=== PATIENT | female | born 1960 | race Caucasian/White ===

== ENCOUNTER → 2023-12-17 14:49 | Outpatient (REF) | payer OTHER, SELFPAY | LOC: RAD 14:49 | PROVIDERS: ATTENDING PHYSICIAN Nuclear Medicine Nuclear Cardiology; FAMILY PHYSICIAN Family Medicine | DX: I82.409 Acute embolism and thrombosis of unspecified deep veins of unspecified lower extremity (principal) | CPT/HCPCS: 93971 ==

== ENCOUNTER 2024-11-05 06:54 | Day surgery (SDC) | payer OTHER, SELFPAY | END 2024-11-05 10:51 | disposition home or self-care (01) | LOC: CATH 06:54 | PROVIDERS: ATTENDING PHYSICIAN Nuclear Medicine Nuclear Cardiology; FAMILY PHYSICIAN Family Medicine | DX: I48.0 Paroxysmal atrial fibrillation (principal); I08.1 Rheumatic disorders of both mitral and tricuspid valves; Q21.12 Patent foramen ovale; E78.2 Mixed hyperlipidemia; Z82.49 Family history of ischemic heart disease and other diseases of the circulatory system; Z95.810 Presence of automatic (implantable) cardiac defibrillator; Z79.01 Long term (current) use of anticoagulants | CPT/HCPCS: 93312; 93320; 93325 ==

== ENCOUNTER 2024-12-01 22:49 | Inpatient (IN) | payer OTHER, SELFPAY ==
[2024-12-01] VITALS (13 sets, daily range): BP systolic 84–114; BP diastolic 64–85; BMI 28.4
[2024-12-01 19:28] LABS: Hematocrit 36.1 % (37.0-47.0); Hemoglobin 12.0 g/dL (12.0-16.0); Mean Corp Hgb Conc. 33.2 g/dL (33.0-37.0); Mean Corpuscular Volume 95.3 fL (81.0-99.0); Nucleated Red Blood Cells % 0 %; Platelet Count 326 10^3/uL (130-400); Red Cell Dist. Width 12.1 % (11.5-14.5)
[2024-12-01 19:40] LABS: INR 1.46; PT 18.0 Sec (11.4-14.6)
[2024-12-01 19:41] LABS: APTT 29.3 Sec (23.4-35.0)
[2024-12-01 19:59] LABS: ALT (SGPT) 110 U/L (0-35); AST (SGOT) 72 U/L (14-36); Albumin 3.8 g/dl (3.5-5.0); Alkaline Phosphatase 58 U/L (38-126); Blood Urea Nitrogen 21 mg/dl (7-17); Calcium 9.3 mg/dl (8.4-10.2); Carbon Dioxide 23 mmol/L (22-30); Chloride 107 mmol/L (98-107); Estimated Creatinine Clearance 71 ml/min; Glucose 127 mg/dl (70-99); Potassium 5.1 mmol/L (3.5-5.1); Sodium 136 mmol/L (135-145); Total Protein 7.8 g/dl (6.3-8.2); eGFR > 60.00
[2024-12-01 20:09] LABS: Troponin I < 0.012 ng/ml
--- NOTE | 2024-12-01 20:55 | ED.GENMED ---
History of Present Illness
General
Chief Complaint: Cardiac Symptoms
Source: patient, records and spouse
Exam Limitations: none
Time Seen by Provider: 12/01/24 20:39
Nursing documentation reviewed up to this point in time: agreed with
History of Present Illness
History of Present Illness:
64-year-old female with a past medical history of cardiomyopathy status post AICD, paroxysmal atrial fibrillation who presents to the emergency department for evaluation of shortness of breath and tachycardia. Patient reports symptoms have been
worsening over the past few weeks. She says that for the past week she has noticed that she cannot even walk from her car to her office without stopping due to shortness of breath. She says she has noticed increased swelling around the ankles.
She has not noted any weight gain. She says she has significant orthopnea and trouble sleeping at night because of it. She says she has had wheezing at nighttime. She says that she received a call from her ict trainer because her AICD has been
alarming due to A-fib with RVR and she was ultimately referred to the ER with her symptoms concerning for CHF. She has been in A-fib it sounds like since early reports initially she was asymptomatic but it was noted on her pacemaker report
and so she was brought in by cardiology with initial plan for YANIQUE cardioversion; unfortunately clot noted on YANIQUE and so procedure was halted in favor of plan for anticoagulation.
Past History
Past History
ED Past Medical History: Other (cardiomyopathy)
ED Past Surgical History: Cardiac
Social History
Alcohol: Occasional
Personal:
Living: with family
Review of Systems
Review of Systems
All Other Systems: ROS reviewed and negative except as documented in HPI and ROS
Constitutional: Reports fatigue; Denies fever
Respiratory: Reports trouble breathing; Denies cough
Cardiac: Reports palpitations; Denies chest pain
ABD/GI: Denies abdominal pain or nausea
: Denies flank pain
Musculoskeletal: Reports edema; Denies neck pain or back pain
Neurological: Denies dizzy or headache
Phy Exam
Physical Exam
Physical Exam:
General: Awake, alert, oriented x3; no acute distress
Head: Normocephalic, atraumatic
Eyes: Conjunctiva normal
Throat: Airway intact, handling secretions
Neck: Trachea midline, no JVD noted
Lungs: Patient has rales at the lung bases bilaterally but no tachypnea or hypoxia
Heart: Tachycardia with irregularly irregular rhythm, no murmurs, gallops, or rubs
Abd: Soft, non distended, nontender
Neuro: No gross deficits
Extremities: Trace edema in the lower legs bilaterally equal pulses in all extremities
Scores
Heart Failure Risk
Heart Failure Risk Score: Yes
History of Stroke or TIA: No
History of intubation for respiratory distress: No
Heart rate on ED arrival >/= 110: Yes
SaO2 <90% on arrival on room air: No
HR >/=110 during 3min walk test (or too ill to perform test): Yes
ECG has acute ischemic changes: No
Urea >/=12mmol/L (BUN 33.6mg/dL): No
Serum CO2>/=35mmol/L: No
Troponin I or T elevated to MO Level (0.4mg/dL): No
NT-proBNP >/=5,000ng/L (5,000pg/ml): No
HF Risk Score: 2
Admission Status: MEDIUM RISK 9.2% Consider observation or discharge to home with homecare & f/u visit to PCP/Director Of Engineering, or SNF for treatment
Heart Score for Chest Pain Patients
STEMI patient?: Not applicable
Withdrawal Assessment of Alcohol
Withdrawal Assessment Completed?: Not applicable
Course
Orders/Labs/Results
Orders:
Orders
12/01/24 18:55
Complete Blood Count/With Diff Urgent
Comprehensive Metabolic Panel Urgent
NT-proBNP Urgent
Comment: ADD ON
PT/INR [Prothrombin Time] Urgent
Is patient on Coumadin/Warfarin?: No
Comment: [email or web address]
PTT Urgent
Troponin I Urgent
12/01/24 19:39
Interrogate Pacemaker- Treatment ONCE
12/01/24 20:52
Add On- LAB Urgent
Tests Added?: pro-BNP
12/01/24 20:53
CR Chest - 2 Views Urgent
Comment:
Reason For Exam: sob
12/01/24 20:55
CARDIOLOGY CONSULT Urgent
Consulting Provider: Jose G Sprague
Was physician already notified: Yes
Diltiazem HCl [Cardizem] 10 mg IV NOW STA
Furosemide [Lasix] 40 mg IV NOW STA
Abnormal Lab Results
12/01/24
18:55
RBC 3.79 L 10^6/uL
(4.20-5.40)
Hct 36.1 L %
(37.0-47.0)
MCH 31.7 H pg
(27.0-31.0)
PT 18.0 H Sec
(11.4-14.6)
BUN 21 H mg/dl
(7-17)
Glucose 127 H mg/dl
(70-99)
AST 72 H U/L
(14-36)
ALT 110 H U/L
(0-35)
12/01/24 18:55
12/01/24 18:55
Vital Signs
Initial and Last Documented VS:
Initial Vital Signs
Temp Pulse Resp BP Pulse Ox
36.4 C 129 16 114/84 97
12/01/24 18:48 12/01/24 18:48 12/01/24 18:48 12/01/24 18:48 12/01/24 18:48
Last Documented Vital Signs
Temp Pulse Resp BP Pulse Ox
36.4 C 126 20 108/81 95
12/01/24 18:48 12/01/24 21:05 12/01/24 20:15 12/01/24 21:05 12/01/24 21:00
MDM/Problems Addressed
Differential Diagnosis Includes:
CHF, symptomatic A-fib, anemia
MDM/Problems Addressed:
64-year-old female presents to the ER for evaluation of increasing shortness of breath and leg swelling, orthopnea in the setting of recent issues with A-fib as described above. She had clot noted on YANIQUE a few weeks ago and for this reason could
not be cardioverted but was started on Eliquis and has been compliant. Would not be a good cardioversion candidate electively in the ER. She does appear to be in mild CHF today. Her vital signs today were significant for tachycardia but no
hypoxia or tachypnea and normal blood pressure. She had lab work sent off including a CBC and a CMP which showed mild transaminitis likely in the setting of CHF. proBNP is pending. Troponin undetectable. Will check chest x-ray. Reviewed EKG
which shows A-fib with RVR, device interrogation report shows persistently high rates for about a month. Discussed with ict trainer will plan for rate control and diuresis, admission to hospitalist service pending rest of workup.
Chest x-ray reviewed by me shows mild pulmonary vascular congestion overall clinical picture concerning for CHF likely triggered by A-fib with RVR. Heart rate improved to low 100s after IV diltiazem. Will admit for continued monitoring and
treatment. Discussed with hospitalist for admission.
Chronic conditions affecting care:
A-fib, cardiomyopathy
*Radiology
Radiology exam reviewed: preliminary read by ED provider
*Pulse Oximetry
SaO2: 95
Oxygen Mode of Delivery: Room air
Patient hypoxic: no (95%)
*EKG
Interpreted by ED Provider?: Yes
Heart Rate: 134
Rate: tachycardiac
Rhythm: a-fib
[place]: right axis deviation
Interval: normal interval
QRS Pattern: normal QRS
Ischemia: no ischemia
*Critical Care Note
Total Time (30-74mins, 75-104mins- exclusive of procedures): Not Applicable
Data Reviewed
Review of Other/Old Records Reveals: Labs and Records
Source: patient, records and spouse
Patient Management
Discussion with other providers: Hospitalist (Discussed with hospitalist) and Picture Copyist (Discussed with cardiology)
Escalation/DeEscalation of care consider admission/obs:
Admission indicated
ED Attending Note
-
Portions of this chart may have been created with voice recognition software.� Occasional wrong word or��sound alike� substitutions may have occurred due to the inherent limitations of voice recognition software.
Discharge Plan
Departure
Patient Disposition: Admit
Date of Disposition: 12/01/24
Time of Disposition: 21:45
Admit to doctor: Courtney
Presentation/result/management discussed w/ accepting MD/DO: Hospitalist
Discharge Problem:
CHF (congestive heart failure), Atrial fibrillation with RVR
Prescriptions:
No Action
carvedilol 6.25 MG tablet
12.5 mg PO BID
ergocalciferol (vitamin D2) 1,250 mcg (50,000 unit) Capsule
1,250 mcg PO QWEEK
loratadine [Claritin] 10 mg Tablet
10 mg PO DAILY PRN (Reason: allergies)
Eliquis 5 mg Tablet
5 mg PO BID
Referrals:
Trena Morales MD [Family Provider]
Interventions
Interventions:
*Risk Screen - Suicide Last Done: 12/01/24 18:52
*General Assessment Last Done: 12/01/24 19:45
*Neglect/Abuse Screening Last Done: 12/01/24 18:52
*ED- Fall Risk Assessment Last Done: 12/01/24 19:45
*ED COVID-19 Vaccine History Last Done: 12/01/24 19:45
ED- Cardiac Assessment Last Done: 12/01/24 19:45
ED- Pulmonary Assessment Last Done: 12/01/24 19:45
Discharge Date and Time
Print Language: BENGALI
[2024-12-01] MEDS: CARDIZEM 10 MG IV (21:05)
--- NOTE | 2024-12-01 22:21 | HPS.HSE ---
Family Physician
-
Family Physician: Trena Morales
Chief Complaint
-
Shortness of breath
History of Present Illness
This is a 61-year-old female with past medical history significant for nonischemic cardiomyopathy status post pacemaker AICD, recent diagnosis of atrial fibrillation presenting to the emergency department with wheezing and shortness of breath as
well as orthopnea.
She has been a longstanding patient of cardiology. Found to have atrial fibrillation on evaluation of AICD. She was started on Eliquis over a month ago. 1 week after that she had a YANIQUE which showed a clot and they held off cardioversion at that
time. According to notes she was started on Eliquis on 710 but patient stated that she had been started before that. She has been having increasing tachycardia and shortness of breath. AICD report shows frequent episodes of rapid rates for weeks
now. She has self noticed intermittent ankle edema. She reports orthopnea. Overnight she states she was wheezing morning usual and she called her physician who asked her to come to the emergency department. She denies having any chest pain. She
denies feeling dizzy or lightheaded.
In the emergency department she was initially tachycardic to the 130s. Blood pressure was in the 90s over 60s with a oxygen saturation of 94% on room air. She was afebrile. ECG shows atrial fibrillation at rate of 134. Chest x-ray shows
cardiomegaly with mild interstitial pulmonary edema and trace pleural effusions. BNP was elevated at 3417. Troponin was 0.012. CBC was unremarkable, electrolytes were all within normal limits with the BUN and creatinine were normal.
Medical History
Past Medical History
Past Medical History: Reports Arrhythmia (Atrial fibrillation) and CHF (Nonischemic cardiomyopathy status post pacemaker AICD)
Additional Past Medical History:
Nonischemic cardiomyopathy
Proximal atrial fibrillation
Past Surgical History: Reports Appendectomy and Gynocological (Hysterectomy with bilateral salpingo-oophorectomy)
Social History
Tobacco: Non-smoker
Alcohol: Occasional
Drug: None
Personal:
Living: With Family
Employment: Employed
Family History
Family History: Not pertinent
Allergies / Home Medications
Allergies reflects when Allergies were last updated in pushd.
Home Medications with original date entered in pushd
Allergy/Medication List:
Allergies
Allergy/AdvReac Type Severity Reaction Status Date / Time
Penicillins Allergy Hives Verified 12/29/11 13:28
Home Medications
carvedilol 6.25 mg tablet 12.5 mg PO BID 03/10/09
apixaban 5 mg tablet (Eliquis) 5 mg PO BID 11/05/24
ergocalciferol (vitamin D2) 1,250 mcg (50,000 unit) capsule 1,250 mcg PO QWEEK 11/05/24
loratadine 10 mg tablet (Claritin) 10 mg PO DAILY PRN allergies 11/05/24
Review of Systems
-
History Source: Patient
Constitutional: Reports No Symptoms
EENT: Reports No Symptoms
Respiratory: Reports Trouble Breathing
Cardiac: Reports No Symptoms
Abdomen/GI: Reports No Symptoms
: Reports No Symptoms
Musculoskeletal: Reports No Symptoms
Skin: Reports No Symptoms
Neurological: Reports No Symptoms
Endocrine: Reports No Symptoms
Hematologic/Lymphatic: Reports No Symptoms
Psych: Reports No Symptoms
Physical Exam
Vital Signs
Vital Signs
Temp Pulse Resp BP Pulse Ox
97.6 F 89 18 94/68 94
12/01/24 18:48 12/01/24 22:00 12/01/24 22:00 12/01/24 22:00 12/01/24 22:00
Physical Exam
General: Well Developed, Well Nourished and No Apparent Distress
HEENT: NormoCephalic, Moist mucous membranes and Atraumatic
Respiratory: Clear
Cardiac: S1/S2, Irregular Rhythm and Tachycardia; No Murmur or Rub
GI: Soft, Non Tender, Non Distended and Normal Bowel Sounds; No Organomegaly
Rectal: Deferred by Provider
Musculoskeletal: No Clubbing, No Cyanosis and No Edema
Skin: No Rash
Neuro: AO x 3 and Nonfocal/grossly intact
Psych: Calm
Laboratory Results
-
12/01/24 18:55
12/01/24 18:55
Laboratory Results
PT 18.0 Sec (11.4-14.6) H 12/01/24 18:55
INR 1.46 12/01/24 18:55
APTT 29.3 Sec (23.4-35.0) 12/01/24 18:
Total Bilirubin 0.7 mg/dl (0.2-1.3) 12/01/24 18:55
AST 72 U/L (14-36) H 12/01/24 18:55
ALT 110 U/L (0-35) H 12/01/24 18:55
Alkaline Phosphatase 58 U/L (38-126) 12/01/24 18:55
Troponin I < 0.012 ng/ml 12/01/24 18:55
Data Reviewed
-
Diagnostic Radiology: Image Personally Visualized and interpreted and Report Reviewed by me
Medical Tests (Nuc Med, Echo, EKG etc): Image Personally Visualized and interpreted
Lab Data: Labs Reviewed by me
Old Records: Reviewed
Impression/Plan
-
IMPRESSION:
64 year-old female with recent diagnosis of atrial fibrillation coming in with rapid atrial fibrillation and likely rate related worsening cardiomyopathy with echocardiogram (YANIQUE showing EF of 50% and bilateral atrial enlargement. BNP is over 3000.
Troponin is negative. She has mild interstitial edema. Overall she does not seem markedly volume overloaded currently rates are in the low 100s and high 90s.
PLAN:
A-fib with RVR and CHF exacerbation
-Admit to IVU
-N.p.o. after midnight
-Echo in a.m.
-Patient rate controlled with 10 mg of IV diltiazem, gentle with Dilt given EF of 15% but can start Dilt for rate control
-Continue Coreg 25 twice daily with hold parameters for blood pressure
-Lasix 40 mg IV daily for now
-Daily weights and ins and outs
- If rate remains uncontrolled we will need cardioversion in the morning otherwise may go for ablation
-Continue Eliquis
Transaminitis - likely 2/2 hepatic congestion
- trend with fluid removal on lasix
DVT prophylaxis�on Eliquis
CODE STATUS�full code
[2024-12-02] VITALS (9 sets, daily range): BP systolic 89–110; BP diastolic 58–77; BMI 28.2
--- NOTE | 2024-12-02 02:02 | PTCARENOTE ---
Pt. rec'd into room 2256 from ED AAOx3, VSS, A-fib on the monitor, rate low 100's-120's with ambulation. No complaints of chest pain discomfort, does complain of some MELGAR with ambulation and unable to lie flat while in bed - pulse ox on RA 94-95%,
lungs clear. No other complaints. Pt. oriented to room and plan of care, understanding verbalized. Currently resting quietly.
[2024-12-02 05:02] LABS: Hematocrit 34.2 % (37.0-47.0); Hemoglobin 11.4 g/dL (12.0-16.0); Mean Corp Hgb Conc. 33.3 g/dL (33.0-37.0); Mean Corpuscular Volume 94.5 fL (81.0-99.0); Platelet Count 287 10^3/uL (130-400); Red Cell Dist. Width 12.1 % (11.5-14.5)
[2024-12-02 05:28] LABS: ALT (SGPT) 96 U/L (0-35); AST (SGOT) 52 U/L (14-36); Albumin 3.6 g/dl (3.5-5.0); Alkaline Phosphatase 55 U/L (38-126); Blood Urea Nitrogen 13 mg/dl (7-17); Calcium 8.8 mg/dl (8.4-10.2); Carbon Dioxide 21 mmol/L (22-30); Chloride 110 mmol/L (98-107); Estimated Creatinine Clearance 90 ml/min; Glucose 102 mg/dl (70-99); Magnesium 1.9 mg/dl (1.6-2.3); Potassium 4.3 mmol/L (3.5-5.1); Sodium 139 mmol/L (135-145); Total Protein 7.1 g/dl (6.3-8.2); eGFR > 60.00
--- NOTE | 2024-12-02 07:31 | CON.CAR ---
Addendum entered and electronically signed by Tavo Muse DO 12/02/24 16:04:
I saw and examined the patient.
The Nutrition Partner's note was reviewed and I agree with the note.
Comment:
She presents with progressive dyspnea and orthopnea and signs of acute systolic heart failure.
Recent left atrial appendage thrombus precluded cardioversion in the setting of recurrent worsened cardiomyopathy likely secondary to atrial fibrillation.
Cont IV diuresis
LFT elevation likely secondary to hepatic congestion, slowly improving.
Consider YANIQUE to reeval for resolution of thrombus inpt vs outpt pending clinical course.
Cont Coreg 25 mg BID
Cont Eliquis.
May need to consider additional agent for rate control pending HR control.
Hypotension has precluded GDMT for CM.
She is considering a second opinion at [facility] through her prior coworker.
She remains appreciative of care.
Original Note:
Consultation
Consultation Request
Date/Time Consultation Requested: 12/01/2024 at 2055
Date/Time Consultation Performed: 12/02/2024 and 0742
Requesting Provider: Dr. Cortes
Performing Provider: Dr. Muse
Reason for Consultation: Afib with RVR, acute HFrEF
Medical History
-
History of Present Illness:
Patient came to the ER yesterday with increasing SOB and was admitted with rapid A-fib and acute HF with cardiology being consulted. Patient has a history of NICM, EF was 30 to 35% in 2008 and cardiac cath at that time showed normal coronary
arteries. EF improved to 40 to 45% with GDMT and was stable until another slight drop in EF down to 30% by echo 07/17/2022 prompting another cardiac cath on 06/08/2021 that also showed normal coronary arteries. Patient's EF improved again and was up
to 40 to 45% by echo 04/16/2024. Cardiology office was alerted to new A-fib by the patient's [employer] ICD on 10/23/2024 and patient was started on Eliquis. Patient was seen in the office and was agreeable to YANIQUE/CV which was attempted on
11/05/2024, but patient found to have MARU clot and CV was canceled. Patient has been remained on her usual dose of Eliquis 5 mg BID, but her dose of Coreg has been increased for increasing symptoms of A-fib. Patient had been asymptomatic with A-fib
when it was initially noticed on device check, but symptoms have been increasing, increasingly SOB and MELGAR. Patient was not chronically on loop diuretic and when she called the office with symptoms of orthopnea yesterday she was referred to the ER.
PMH:
Paroxysmal Afib
noticed on device check 10/23/24
Chronic Eliquis OAC since 10/26/24
MARU clot on YANIQUE 11/05/24
NICM EF 15% by YANIQUE 11/05/2024
h/o improved CM EF 30 to 35% by echo 2008 then improved to 40 to 45% with GDMT on echo 04/02/2012
Normal coronary arteries by cardiac catheterizations 08/24/2008 and 06/08/2021
Past Medical History
Past Medical History: Other (in HPI)
Past Surgical History: Appendectomy, Cardiac ([employer] DC ICD), Gynecological (partial hysterectomy) and Tonsilectomy
Social History
Tobacco: Non-Smoker
Alcohol: None
Drug: None
Personal:
Living: With Family
Employment: Employed (she works for [employer])
Family History
Family History: CAD (father had CABG and mother had CHF)
Allergies / Home Medications
Allergy/AdvReac Type Severity Reaction Status Date / Time
Penicillins Allergy Hives Verified 12/29/11 13:28
�Medication �Instructions �Recorded �Confirmed �Type
carvedilol 6.25 mg tablet 12.5 mg PO BID 03/10/09 12/01/24 History
apixaban 5 mg tablet (Eliquis) 5 mg PO BID 11/05/24 12/02/24 History
ergocalciferol (vitamin D2) 1,250 1,250 mcg PO QWEEK 11/05/24 12/01/24 History
mcg (50,000 unit) capsule
loratadine 10 mg tablet (Claritin) 10 mg PO DAILY PRN allergies 11/05/24 12/01/24 History
Review of Systems
-
History Source: Patient
All other systems: Negative unless noted
Physical Exam
Vital Signs
Temp Pulse Resp BP Pulse Ox
97.7 F 93 16 110/68 95
12/02/24 04:23 12/02/24 04:22 12/02/24 04:23 12/02/24 04:22 12/02/24 04:23
GEN: NAD. AAOx3
HEENT: EOMI, MMM
LUNGS: RA. CTA B/L, no wheeze
CV: Afib on tele. Irreg irreg, S1/S2, no murmur
ABD: soft, BS+, NT, ND
EXT: No clubbing, cyanosis, lesions or edema B/L
NEURO: Gross non-focal
SKIN: Warm, dry and pink. No rash
Lab Results
12/02/24 04:30
12/02/24 04:30
Troponin I < 0.012 ng/ml 12/01/24 18:55
Spe-D-Bicfktbpouk Pept 3470 pg/ml 12/01/24 18:55
Impression / Plan
-
PCP: Dr. Trena Morales
Card: Dr. Muse
Impression:
Admitted with acute HF and rapid Afib 12/01/24
Afib with RVR
Paroxysmal Afib
noticed on device check 10/23/24
Chronic Eliquis OAC since 10/26/24
MARU clot on YANIQUE 11/05/24
Acute HFrEF
NICM EF 15% by YANIQUE 11/05/2024
h/o improved CM EF 30 to 35% by echo 2008 then improved to 40 to 45% with GDMT on echo 04/02/2012
Normal coronary arteries by cardiac catheterizations 08/24/2008 and 06/08/2021
Echo 07/2008: EF 30 to 35%
Echo 04/02/2012: EF 40 to 45%, trace MR
Echo 01/13/2018: EF 40 to 45%, anterior septum and apex are hypokinetic, no significant valve disease
Echo 04/11/2021: EF 30%, global hypokinesis
Echo 07/17/2022: EF 30% with global hypokinesis
Echo 04/16/2024: EF 40 to 45%, normal RV size and function, no significant valve disease
YANIQUE 11/05/2024: EF 15% with global hypokinesis, large volume thrombus formation and heavy spontaneous echo contrast in the MARU, mild MR, evidence of PFO with [id number] shunt by color Doppler
Plan:
-Patient came to the ER yesterday with increasing SOB and was admitted with rapid A-fib and acute HF with cardiology being consulted. Patient has a history of NICM, EF was 30 to 35% in 2008 and cardiac cath at that time showed normal coronary
arteries. EF improved to 40 to 45% with GDMT and was stable until another slight drop in EF down to 30% by echo 07/17/2022 prompting another cardiac cath on 06/08/2021 that also showed normal coronary arteries. Patient's EF improved again and was up
to 40 to 45% by echo 04/16/2024. Cardiology office was alerted to new A-fib by the patient's [employer] ICD on 10/23/2024 and patient was started on Eliquis. Patient was seen in the office and was agreeable to YANIQUE/CV which was attempted on
11/05/2024, but patient found to have MARU clot and CV was canceled. Patient has been remained on her usual dose of Eliquis 5 mg BID, but her dose of Coreg has been increased for increasing symptoms of A-fib. Patient had been asymptomatic with A-fib
when it was initially noticed on device check, but symptoms have been increasing, increasingly SOB and MELGAR. Patient was not chronically on loop diuretic and when she called the office with symptoms of orthopnea yesterday she was referred to the ER.
-ECG reviewed by me is A-fib with RVR
-proBNP elevated at 3470 and evidence of mild interstitial edema on CXR with a small right pleural effusion.
-Patient was not given Lasix IV overnight due to hypotension following Cardizem 10 mg IV x 1. Plan is for Lasix 40 mg IV daily starting now. Patient was not taking a loop diuretic prior to admission.
-Patient with known NICM that is acutely worse with a EF 15% by YANIQUE 11/05/2024 likely related to atrial arrhythmia. Discussed with patient formulating short-term and long-term management plan. Short-term plan would be another attempt at YANIQUE/CV and
possibly starting AAD. As part of that patient would need to be diuresed to help increase chances of maintaining SR. Long-term plan would include evaluation by EP for possible ablation.
-Patient indicates that her supervisory geographer at work is a former heart surgeon and is helping her to coordinate a tertiary care center evaluation at [place].
-In the meantime patient will continue with her usual outpatient dose of Coreg 25 mg BID
-Outpatient dose of Eliquis 5 mg BID (age 64, Cre0.7) has been continued and no missed doses
-Consider adding back lisinopril. Lisinopril was stopped in 2017 due to symptomatic hypotension.
--- NOTE | 2024-12-02 07:36 | W.PN.HOSP.TC ---
Today's Communication/Plan
-
see plan
Assessment / Plan
Assessment / Plan
64 year-old female with recent diagnosis of atrial fibrillation coming in with symptoms of shortness of breath with in setting of rapid afib and heart failure.
YANIQUE 11/05/24
CONCLUSIONS
Moderately dilated left atrium with severely reduced left ventricular systolic
function ejection fraction 15% with global hypokinesis.
Biatrial enlargement.
Pacer wire seen in the right heart.
Large volume thrombus formation and heavy spontaneous echo contrast noted in
the left atrial appendage.
Mild mitral regurgitation.
Mild tricuspid regurgitation.
Evidence of PFO with urfl-jy-inwmz shunt by color-flow Doppler.
Compared to previous 2D echo from March 2024, EF was 40 to 45% at that time
with no significant valvular pathology, and no evidence of PFO.
PLAN:
A-fib with RVR
HFrEF, acute exacerbation
-Admitted to IVU
-N.p.o. after midnight
-Cardiology consulted
-TTE
-s/p IV Dilt in ER, hold further with low EF and drop in BP
-Continue Coreg 12.5 twice daily with hold parameters for blood pressure
-Lasix 40 mg IV daily
-Daily weights, strict I/O
Transaminitis - likely 2/2 hepatic congestion
- trend with fluid removal on lasix
DVT prophylaxis�on Eliquis
CODE STATUS�full code
Anticipated Discharge: 24 - 48 hours
Subjective/Interval History
-
Date of Service: December 02, 2024
no symptoms at rest
denies chest pain or palpitations
didn't receive IV lasix yest as BP dropped post dilt
Objective Data
-
Labs:
Laboratory Results
12/01/24 12/02/24
18:55 04:30
WBC 4.9
Hgb 11.4 L
Hct 34.2 L
Plt Count 287
PT 18.0 H
INR 1.46
APTT 29.3
Sodium 136 139
Potassium 5.1 4.3
Chloride 107 110 H
Carbon Dioxide 23 21 L
BUN 21 H 13
Creatinine 0.9 0.7
Glucose 127 H 102 H
Calcium 9.3 8.8
Total Bilirubin 0.7 0.8
AST 72 H 52 H
ALT 110 H 96 H
Alkaline Phosphatase 58 55
Vital Signs:
Vital Signs
Temp Pulse Resp BP Pulse Ox
97.7 F 93 16 110/68 95
12/02/24 04:23 12/02/24 04:22 12/02/24 04:23 12/02/24 04:22 12/02/24 04:23
I&O
12/01/24 12/02/24 12/03/24
06:59 06:59 06:59
Intake Total 240 / 240
Output Total 500 / 500
Balance -260 / -260
Review of Systems
-
History Source: Patient
All other systems: Reviewed and negative
Physical Exam
-
General: Conversant
HEENT: PERRLA
Respiratory: Clear to Auscultation; Negative Wheezes
Cardiac: S1/S2, Irregular Rhythm and Tachycardic
GI: Soft and Nontender
Musculoskeletal: Other (trace bilateral edema )
Skin: Warm and Dry; Negative Rash
Neuro: AO x 3
Psych: Calm
Data Reviewed
-
Diagnostic Radiology: Report Reviewed by me
Labs: Labs Reviewed by me
[2024-12-02] MEDS: LASIX 40 MG IV (08:25)
[2024-12-02] MEDS: ELIQUIS 5 MG PO ×2 (08:26→20:17)
[2024-12-02] MEDS: COREG 25 MG PO ×2 (08:29→20:19)
--- NOTE | 2024-12-02 11:21 | CM ---
Chart reviewed. Patient is independent of ADLS, lives with her in a [address], 5 [address], 0 DME. Plan is for the patient to return home. CM to follow
--- NOTE | 2024-12-02 17:00 | PTCARENOTE ---
Pt received this am in Afib, rate in the 90's to 130's. Pt asymptomatic with accelerated rate. Pt oob ad mehdi in the room. Denies any chest pain or sob. No c/o offered.
[2024-12-03] VITALS (10 sets, daily range): BP systolic 89–105; BP diastolic 53–84; BMI 27.0
--- NOTE | 2024-12-03 02:11 | PTCARENOTE ---
Pt NSR o monitor, VSS. Pt denies any discomfort. NPO for YANIQUE and CV
[2024-12-03 04:44] LABS: Blood Urea Nitrogen 14 mg/dl (7-17); Calcium 9.0 mg/dl (8.4-10.2); Carbon Dioxide 25 mmol/L (22-30); Chloride 108 mmol/L (98-107); Estimated Creatinine Clearance 70 ml/min; Glucose 109 mg/dl (70-99); Magnesium 2.0 mg/dl (1.6-2.3); Potassium 4.3 mmol/L (3.5-5.1); Sodium 139 mmol/L (135-145); eGFR > 60.00
--- NOTE | 2024-12-03 07:23 | W.PN.HOSP.TC ---
Today's Communication/Plan
-
see plan
Assessment / Plan
Assessment / Plan
64 year-old female with recent diagnosis of atrial fibrillation coming in with symptoms of shortness of breath with in setting of rapid afib and heart failure.
YANIQUE 11/05/24
CONCLUSIONS
Moderately dilated left atrium with severely reduced left ventricular systolic
function ejection fraction 15% with global hypokinesis.
Biatrial enlargement.
Pacer wire seen in the right heart.
Large volume thrombus formation and heavy spontaneous echo contrast noted in
the left atrial appendage.
Mild mitral regurgitation.
Mild tricuspid regurgitation.
Evidence of PFO with ykha-uj-ttcxp shunt by color-flow Doppler.
Compared to previous 2D echo from March 2024, EF was 40 to 45% at that time
with no significant valvular pathology, and no evidence of PFO.
TTE 12/02/24
SUMMARY
1. Severely decreased left ventricular function.
2. Ejection fraction is 15% by visual assesment.
3. Left ventricular wall motion is diffusely hypokinetic.
4. Moderate mitral valve regurgitation.
5. Mild tricuspid regurgitation with pulmonary artery pressure 40 mmHg.
6. ICD wire noted in the right heart.
7. Compared to a YANIQUE from October 2024, findings are similar. Patent foramen ovale was noted in the YANIQUE.
PLAN:
A-fib with RVR
HFrEF, acute exacerbation
-Admitted to IVU
-Cardiology consult appreciated
-TTE repeated - results above, no change from prior
-s/p IV Dilt in ER, hold further with low EF and drop in BP
-Continue Coreg 25mg (recently increased as outpatient) twice daily with hold parameters for blood pressure
-Lasix 40 mg IV daily
-Daily weights, strict I/O
-NPO, follow up discussion with Cardiology regarding possible YANIQUE cardioversion today
Transaminitis - likely 2/2 hepatic congestion
- trend with fluid removal on lasix
DVT prophylaxis�on Eliquis
CODE STATUS�full code
Anticipated Discharge: 24 - 48 hours
Subjective/Interval History
-
Date of Service: December 03, 2024
urinated a lot yesterday
breathing and swelling in LE improved
no chest pain
comfortable at rest
Objective Data
-
Labs:
Laboratory Results
12/03/24
03:58
Sodium 139
Potassium 4.3
Chloride 108 H
Carbon Dioxide 25
BUN 14
Creatinine 0.8
Glucose 109 H
Calcium 9.0
Vital Signs:
Vital Signs
Temp Pulse Resp BP Pulse Ox
97.4 F 101 16 94/62 96
12/03/24 03:51 12/03/24 03:51 12/03/24 03:51 12/03/24 03:51 12/03/24 03:51
I&O
12/02/24 12/03/24 12/04/24
06:59 06:59 06:59
Intake Total 240 / 240
Output Total 500 / 500 3255 / 3255
Balance -260 / -260 -3255 / -3255
Review of Systems
-
History Source: Patient
All other systems: Reviewed and negative
Physical Exam
-
General: Conversant
HEENT: PERRLA
Respiratory: Clear to Auscultation; Negative Wheezes
Cardiac: S1/S2, Irregular Rhythm and Tachycardic
GI: Soft and Nontender
Musculoskeletal: Other (trace bilateral edema )
Skin: Warm and Dry; Negative Rash
Neuro: AO x 3
Psych: Calm
Data Reviewed
-
Diagnostic Radiology: Report Reviewed by me
Labs: Labs Reviewed by me
[2024-12-03] MEDS: ELIQUIS 5 MG PO ×2 (08:00→20:15)
[2024-12-03] MEDS: COREG 25 MG PO ×2 (08:00→20:15)
[2024-12-03 08:03] LABS: ALT (SGPT) 90 U/L (0-35); AST (SGOT) 43 U/L (14-36); Alkaline Phosphatase 53 U/L (38-126)
--- NOTE | 2024-12-03 08:09 | W.PN.CARDCBS ---
Today's Communication / Plan
-
Cont IV diuresis, over 3L negative last 24 hrs
LFT elevation likely secondary to hepatic congestion, slowly improving.
Pt was not taking diuretic prior to admit.
Will schedule YANIQUE to reeval for resolution of thrombus as outpt in 2 weeks and consider cv if thrombus has resolved.
May ultimately consider PVI
Cont Coreg 25 mg BID
Add Digoxin 250 mcg IV X 1 today and likely continue with Digoxin to help with rate control in short term. Her hypotension and significant CM precludes addition of CCB at this time.
Cont Eliquis.
Hypotension has limited GDMT for CM.
-Lisinopril was stopped in 2017 due to hypotension.
Her recurrent CM likely secondary to AFib however may consider outpt cardiac MRI to eval for infiltrative disease
Impression / Plan
-
.
PCP: Dr. Trena Morales
Card: Dr. Muse
Impression:
Admitted with acute HF and rapid Afib 12/01/24
Afib with RVR
Paroxysmal Afib
noticed on device check 10/23/24
Chronic Eliquis OAC since 10/26/24
MARU clot on YANIQUE 11/05/24
Acute HFrEF
NICM EF 15% by YANIQUE 11/05/2024
h/o improved CM EF 30 to 35% by echo 2008 then improved to 40 to 45% with GDMT on echo 04/02/2012
Normal coronary arteries by cardiac catheterizations 08/24/2008 and 06/08/2021
Echo 07/2008: EF 30 to 35%
Echo 04/02/2012: EF 40 to 45%, trace MR
Echo 01/13/2018: EF 40 to 45%, anterior septum and apex are hypokinetic, no significant valve disease
Echo 04/11/2021: EF 30%, global hypokinesis
Echo 07/17/2022: EF 30% with global hypokinesis
Echo 04/16/2024: EF 40 to 45%, normal RV size and function, no significant valve disease
YANIQUE 11/05/2024: EF 15% with global hypokinesis, large volume thrombus formation and heavy spontaneous echo contrast in the MARU, mild MR, evidence of PFO with rpvq-dg-[id number] shunt by color Doppler
Plan:
HPI: She presents with progressive dyspnea and orthopnea and signs of acute systolic heart failure.
-Recent left atrial appendage thrombus precluded cardioversion in the setting of recurrent worsened cardiomyopathy likely secondary to atrial fibrillation.
-proBNP elevated at 3470 and evidence of mild interstitial edema on CXR with a small right pleural effusion.
Cont IV diuresis, over 3L negative last 24 hrs
LFT elevation likely secondary to hepatic congestion, slowly improving.
Pt was not taking diuretic prior to admit.
Will schedule YANIQUE to reeval for resolution of thrombus as outpt in 2 weeks and consider cv if thrombus has resolved.
May ultimately consider PVI
Cont Coreg 25 mg BID
Add Digoxin 250 mcg IV X 1 today and likely continue with Digoxin to help with rate control in short term. Her hypotension and significant CM precludes addition of CCB at this time.
Cont Eliquis.
Hypotension has limited GDMT for CM.
-Lisinopril was stopped in 2017 due to hypotension.
Her recurrent CM likely secondary to AFib however may consider outpt cardiac MRI to eval for infiltrative disease
She is considering a second opinion at [facility] through her prior coworker but is unsure of this.
She remains appreciative of care.
HPI: Patient came to the ER yesterday with increasing SOB and was admitted with rapid A-fib and acute HF with cardiology being consulted. Patient has a history of NICM, EF was 30 to 35% in 2008 and cardiac cath at that time showed normal coronary
arteries. EF improved to 40 to 45% with GDMT and was stable until another slight drop in EF down to 30% by echo 07/17/2022 prompting another cardiac cath on 06/08/2021 that also showed normal coronary arteries. Patient's EF improved again and was up
to 40 to 45% by echo 04/16/2024. Cardiology office was alerted to new A-fib by the patient's [employer] DC ICD on 10/23/2024 and patient was started on Eliquis. Patient was seen in the office and was agreeable to YANIQUE/CV which was attempted on
11/05/2024, but patient found to have MARU clot and CV was canceled. Patient has been remained on her usual dose of Eliquis 5 mg BID, but her dose of Coreg has been increased for increasing symptoms of A-fib. Patient had been asymptomatic with A-fib
when it was initially noticed on device check, but symptoms have been increasing, increasingly SOB and MELGAR. Patient was not chronically on loop diuretic and when she called the office with symptoms of orthopnea yesterday she was referred to the ER.
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
Subjective
Date of Service: December 03, 2024
Pt seen and examined. Breathing better
Objective
Labs:
12/02/24 04:30
12/03/24 03:58
Labs
Hgb 11.4 g/dL (12.0-16.0) L 12/02/24 04:30
Hct 34.2 % (37.0-47.0) L 12/02/24 04:30
Plt Count 287 10^3/uL (130-400) 12/02/24 04:30
PT 18.0 Sec (11.4-14.6) H 12/01/24 18:55
INR 1.46 12/01/24 18:55
APTT 29.3 Sec (23.4-35.0) 12/01/24 18:55
Sodium 139 mmol/L (135-145) 12/03/24 03:58
Potassium 4.3 mmol/L (3.5-5.1) 12/03/24 03:58
BUN 14 mg/dl (7-17) 12/03/24 03:58
Creatinine 0.8 mg/dL (0.6-1.0) 12/03/24 03:58
Glucose 109 mg/dl (70-99) H 12/03/24 03:58
Troponins
12/01/24
18:55
Troponin I < 0.012
Vital Signs and I&O:
Vital Signs
Temp Pulse Resp BP Pulse Ox
97.4 F 119 16 100/83 96
12/03/24 03:51 12/03/24 08:00 12/03/24 03:51 12/03/24 08:00 12/03/24 03:51
Vital Signs
Temp Pulse Resp BP Pulse Ox
97.4 F 119 16 100/83 96
12/03/24 03:51 12/03/24 08:00 12/03/24 03:51 12/03/24 08:00 12/03/24 03:51
Intake & Output
12/01/24 12/02/24 12/03/24 12/04/24
06:59 06:59 06:59 06:59
Intake Total 240 / 240
Output Total 500 / 500 3255 / 3255
Balance -260 / -260 -3255 / -3255
Physical Exam
Physical Exam
General: No acute distress, AAOX3
Neck: Negative JVD
Heart: Irreguarly irregular, Negative S3 positive S1/S2, Negative S4, No murmur
Lungs: CTA b/l, negative wheezes/rales/rhonchi
Abd: Positive BS, NT/ND, neg rebound/rigidity/guarding
Ext: Negative cyanosis/clubbing/edema
Neuro: nonfocal
[2024-12-03] MEDS: LANOXIN 250 MCG IV ×2 (12:12→16:12)
[2024-12-03] MEDS: LASIX 40 MG IV (12:13)
--- NOTE | 2024-12-03 14:07 | PTCARENOTE ---
Discussed CV w/ pt. Encouraged questions. YANIQUE/CV rescheduled for tomorrow. Digoxin given per MD order. Pt remains in atrial fib w/ PVC's. Will monitor.
[2024-12-04] VITALS (9 sets, daily range): BP systolic 82–111; BP diastolic 57–79; BMI 27.0; BMI 26.5
--- NOTE | 2024-12-04 04:22 | PTCARENOTE ---
Pt AFib on monitor with HR 80-90BPM. Denies anyy pain or discomfort. ambulates independently in the room
[2024-12-04 04:59] LABS: Hematocrit 38.3 % (37.0-47.0); Hemoglobin 12.7 g/dL (12.0-16.0); Mean Corp Hgb Conc. 33.2 g/dL (33.0-37.0); Mean Corpuscular Volume 95.8 fL (81.0-99.0); Platelet Count 328 10^3/uL (130-400); Red Cell Dist. Width 12.0 % (11.5-14.5)
[2024-12-04 05:28] LABS: Blood Urea Nitrogen 10 mg/dl (7-17); Calcium 9.1 mg/dl (8.4-10.2); Carbon Dioxide 26 mmol/L (22-30); Chloride 106 mmol/L (98-107); Estimated Creatinine Clearance 80 ml/min; Glucose 111 mg/dl (70-99); Potassium 4.2 mmol/L (3.5-5.1); Sodium 140 mmol/L (135-145); eGFR > 60.00
--- NOTE | 2024-12-04 07:22 | W.PN.HOSP.TC ---
Today's Communication/Plan
-
see plan
Assessment / Plan
Assessment / Plan
64 year-old female with recent diagnosis of atrial fibrillation coming in with symptoms of shortness of breath with in setting of rapid afib and heart failure.
YANIQUE 11/05/24
CONCLUSIONS
Moderately dilated left atrium with severely reduced left ventricular systolic
function ejection fraction 15% with global hypokinesis.
Biatrial enlargement.
Pacer wire seen in the right heart.
Large volume thrombus formation and heavy spontaneous echo contrast noted in
the left atrial appendage.
Mild mitral regurgitation.
Mild tricuspid regurgitation.
Evidence of PFO with viml-rk-vrbif shunt by color-flow Doppler.
Compared to previous 2D echo from March 2024, EF was 40 to 45% at that time
with no significant valvular pathology, and no evidence of PFO.
TTE 12/02/24
SUMMARY
1. Severely decreased left ventricular function.
2. Ejection fraction is 15% by visual assesment.
3. Left ventricular wall motion is diffusely hypokinetic.
4. Moderate mitral valve regurgitation.
5. Mild tricuspid regurgitation with pulmonary artery pressure 40 mmHg.
6. ICD wire noted in the right heart.
7. Compared to a YANIQUE from October 2024, findings are similar. Patent foramen ovale was noted in the YANIQUE.
PLAN:
A-fib with RVR
LV thrombus
HFrEF, acute exacerbation
-Admitted to IVU
-Cardiology consult appreciated
-TTE repeated - results above, no change from prior
-s/p IV Dilt in ER, hold further with low EF and drop in BP
-Continue Coreg 25mg (recently increased as outpatient) twice daily with hold parameters for blood pressure
- Digoxin ordered per Cardiology
- Eliquis 5mg PO BID
-Lasix 40 mg IV daily - follow up cardiology recs regarding timing of transition to oral
-Daily weights, strict I/O
-YANIQUE cardioversion as outpatient
Transaminitis - likely 2/2 hepatic congestion
- trend with fluid removal on lasix
DVT prophylaxis�on Eliquis
CODE STATUS�full code
Anticipated Discharge: Within 24 hours
Subjective/Interval History
-
Date of Service: December 04, 2024
feeling well
breathing easier, less swollen
Objective Data
-
Labs:
Laboratory Results
12/04/24
04:34
WBC 5.2
Hgb 12.7
Hct 38.3
Plt Count 328
Sodium 140
Potassium 4.2
Chloride 106
Carbon Dioxide 26
BUN 10
Creatinine 0.7
Glucose 111 H
Calcium 9.1
Vital Signs:
Vital Signs
Temp Pulse Resp BP Pulse Ox
97.6 F 86 16 100/79 95
12/04/24 04:26 12/04/24 07:00 12/04/24 04:26 12/04/24 04:26 12/04/24 04:26
I&O
12/03/24 12/04/24 12/05/24
06:59 06:59 06:59
Intake Total 500 / 500
Output Total 3255 / 3255 2950 / 2950
Balance -3255 / -3255 -2450 / -2450
Review of Systems
-
History Source: Patient
All other systems: Reviewed and negative
Physical Exam
-
General: Conversant
HEENT: PERRLA
Respiratory: Clear to Auscultation; Negative Wheezes
Cardiac: S1/S2, Irregular Rhythm and Tachycardic
GI: Soft and Nontender
Musculoskeletal: No Edema
Skin: Warm and Dry; Negative Rash
Neuro: AO x 3
Psych: Calm
Data Reviewed
-
Diagnostic Radiology: Report Reviewed by me
Labs: Labs Reviewed by me
--- NOTE | 2024-12-04 07:23 | W.PN.CARDCBS ---
Addendum entered and electronically signed by Jose G Sprague MD 12/04/24 11:24:
I saw and examined the patient.
The Traffic Supervisor's note was reviewed and I agree with the note.
Comment:
GEN: No distress, awake, Ox3
HEENT: supple, anicteric, mmm
LUNGS: CTA, no wheezes/rales
CV: Irreg, S1/S2, 1/6 syst LSB, S3+
ABD: soft, BS+, NT/ND
EXT: No edema
NEURO: Gross non-focal
SKIN: No rash
Plan:
Ventricular rates are improved. Continue Coreg 25 mg p.o. twice daily and digoxin. Will check digoxin level in AM.
Continue Lasix 40 mg IV daily. Creat normal. K 4.2
With markedly reduced ejection fraction we will add Farxiga.
Blood pressure remains marginal and at this time cannot tolerate RITA/ARB/Arni.
Original Note:
Today's Communication / Plan
-
Continue diuresis
Continue rate control w/ digoxin, coreg
Continue Eliquis
To be arranged for repeat YANIQUE and possible CV in 2 weeks as OP.
Impression / Plan
-
PCP: Dr. Trena Morales
Card: Dr. Muse
Impression:
Admitted with acute HF and rapid Afib 12/01/24
Paroxysmal Afib w/ RVR
noticed on device check 10/23/24
Chronic Eliquis OAC since 10/26/24
MARU clot on YANIQUE 11/05/24
Acute HFrEF
NICM EF 15% by YANIQUE 11/05/2024
h/o improved CM EF 30 to 35% by echo 2008 then improved to 40 to 45% with GDMT on echo 04/02/2012
Normal coronary arteries by cardiac catheterizations 08/24/2008 and 06/08/2021
Echo 07/2008: EF 30 to 35%
Echo 04/02/2012: EF 40 to 45%, trace MR
Echo 01/13/2018: EF 40 to 45%, anterior septum and apex are hypokinetic, no significant valve disease
Echo 04/11/2021: EF 30%, global hypokinesis
Echo 07/17/2022: EF 30% with global hypokinesis
Echo 04/16/2024: EF 40 to 45%, normal RV size and function, no significant valve disease
YANIQUE 11/05/2024: EF 15% with global hypokinesis, large volume thrombus formation and heavy spontaneous echo contrast in the MARU, mild MR, evidence of PFO with ndrz-kb-xylsf shunt by color Doppler
Plan:
-Presented with increasing SOB/orthopnea. Admitted with acute heart failure and rapid atrial fibrillation.
-She had recent YANIQUE which revealed worsening CM with EF down to 15% as well as large volume thrombus of the MARU. Given thrombus, no CV performed.
-Continues on rate control for now with Coreg 6.25 mg BID and new to digoxin 12/03. Received IV digoxin 250 mcg x2. HRs improved into the 80s-90s on 12/04. Will continue PO digoxin 250 mcg daily.
-Now back on anticoagulation with Eliquis 5mg BID. Will continue anticoagulation and rate control and plan is for repeat YANIQUE with possible CV as OP in 2 weeks.
-ProBNP elevated on arrival at 3470. Diuresing with IV lasix 40mg daily.
-Weight down 3lbs overnight, down to 169 lbs on 12/04.
-Creat stable at 0.7.
-Hypotension has limited GDMT for CM. EF as noted above down to 15% by YANIQUE 11/05. CM felt to likely be secondary to Afib, however could consider OP cardiac MRI to evaluate further.
HPI: Patient came to the ER yesterday with increasing SOB and was admitted with rapid A-fib and acute HF with cardiology being consulted. Patient has a history of NICM, EF was 30 to 35% in 2008 and cardiac cath at that time showed normal coronary
arteries. EF improved to 40 to 45% with GDMT and was stable until another slight drop in EF down to 30% by echo 07/17/2022 prompting another cardiac cath on 06/08/2021 that also showed normal coronary arteries. Patient's EF improved again and was up
to 40 to 45% by echo 04/16/2024. Cardiology office was alerted to new A-fib by the patient's [employer] DC ICD on 10/23/2024 and patient was started on Eliquis. Patient was seen in the office and was agreeable to YANIQUE/CV which was attempted on
11/05/2024, but patient found to have MARU clot and CV was canceled. Patient has been remained on her usual dose of Eliquis 5 mg BID, but her dose of Coreg has been increased for increasing symptoms of A-fib. Patient had been asymptomatic with A-fib
when it was initially noticed on device check, but symptoms have been increasing, increasingly SOB and MELGAR. Patient was not chronically on loop diuretic and when she called the office with symptoms of orthopnea yesterday she was referred to the ER.
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
Subjective
Date of Service: December 04, 2024
Continues to feel improvement. Still w/ some SOB.
Objective
Labs:
12/04/24 04:34
12/04/24 04:34
Labs
Hgb 12.7 g/dL (12.0-16.0) 12/04/24 04:34
Hct 38.3 % (37.0-47.0) 12/04/24 04:34
Plt Count 328 10^3/uL (130-400) 12/04/24 04:34
PT 18.0 Sec (11.4-14.6) H 12/01/24 18:55
INR 1.46 12/01/24 18:55
APTT 29.3 Sec (23.4-35.0) 12/01/24 18:55
Sodium 140 mmol/L (135-145) 12/04/24 04:34
Potassium 4.2 mmol/L (3.5-5.1) 12/04/24 04:34
BUN 10 mg/dl (7-17) 12/04/24 04:34
Creatinine 0.7 mg/dL (0.6-1.0) 12/04/24 04:34
Glucose 111 mg/dl (70-99) H 12/04/24 04:34
Troponins
12/01/24
18:55
Troponin I < 0.012
Vital Signs and I&O:
Vital Signs
Temp Pulse Resp BP Pulse Ox
97.6 F 86 16 100/79 95
12/04/24 04:26 12/04/24 07:00 12/04/24 04:26 12/04/24 04:26 12/04/24 04:26
Vital Signs
Temp Pulse Resp BP Pulse Ox
97.6 F 86 16 100/79 95
12/04/24 04:26 12/04/24 07:00 12/04/24 04:26 12/04/24 04:26 12/04/24 04:26
Intake & Output
12/02/24 12/03/24 12/04/24 12/05/24
06:59 06:59 06:59 06:59
Intake Total 240 / 240 500 / 500
Output Total 500 / 500 3255 / 3255 2950 / 2950
Balance -260 / -260 -3255 / -3255 -2450 / -2450
Physical Exam
Physical Exam
GEN: No distress, awake, alert, oriented x3
HEENT: supple, anicteric, mmm
LUNGS: CTA b/l, no wheezes/rales
CV: Irregularly irregular, S1/S2, no murmur
EXT: No clubbing or cyanosis, trace b/l LE edema
NEURO: Gross non-focal
SKIN: Warm, dry, no rash
[2024-12-04 08:04] LABS: ALT (SGPT) 72 U/L (0-35); AST (SGOT) 32 U/L (14-36); Alkaline Phosphatase 51 U/L (38-126)
[2024-12-04] MEDS: LASIX 40 MG IV (08:21)
[2024-12-04] MEDS: ELIQUIS 5 MG PO ×2 (08:21→20:00)
[2024-12-04] MEDS: COREG 25 MG PO (08:21)
--- NOTE | 2024-12-04 11:11 | PTCARENOTE ---
Pt states that she was having difficulty taking a full deep breath this morning. Pt states that her breathing is easier/better after lasix. Will monitor.
--- NOTE | 2024-12-04 11:14 | CM ---
Pricing on Farxiga 10mg daily is covered at $112 for a 30 day and Jardiance is covered at $117 for a 30 day. The patient has commercial insurance and qualifies for the copay card. I will put a $0 copay card in the patients red discharge folder.
[2024-12-04] MEDS: LANOXIN 250 MCG PO (12:18)
[2024-12-04] MEDS: FARXIGA 10 MG PO (12:19)
[2024-12-04] MEDS: COREG PO (20:04)
--- NOTE | 2024-12-04 21:53 | PTCARENOTE ---
Received pt at change of shift OOB in chair. pt ambulating in hallways. Afib on tele, HR 90's-100. pt denies any CP or SOB. BP 96/68, Coreg held per parameters. Instructed pt to call RN w/ any questions/concerns. Call bourgeois within reach.
[2024-12-05 04:43] VITALS: BP 95/70
[2024-12-05 04:59] VITALS: BMI 26.2
[2024-12-05 05:46] LABS: Blood Urea Nitrogen 11 mg/dl (7-17); Calcium 9.5 mg/dl (8.4-10.2); Carbon Dioxide 24 mmol/L (22-30); Chloride 107 mmol/L (98-107); Digoxin 0.6 ng/ml (0.8-2.0); Estimated Creatinine Clearance 80 ml/min; Glucose 107 mg/dl (70-99); Magnesium 2.1 mg/dl (1.6-2.3); Potassium 4.3 mmol/L (3.5-5.1); Sodium 139 mmol/L (135-145); eGFR > 60.00
[2024-12-05 07:43] VITALS: BP 99/68
--- NOTE | 2024-12-05 08:27 | W.PN.HOSP.TC ---
Today's Communication/Plan
-
see plan
Assessment / Plan
Assessment / Plan
64 year-old female with recent diagnosis of atrial fibrillation coming in with symptoms of shortness of breath with in setting of rapid afib and heart failure.
YANIQUE 11/05/24
CONCLUSIONS
Moderately dilated left atrium with severely reduced left ventricular systolic
function ejection fraction 15% with global hypokinesis.
Biatrial enlargement.
Pacer wire seen in the right heart.
Large volume thrombus formation and heavy spontaneous echo contrast noted in
the left atrial appendage.
Mild mitral regurgitation.
Mild tricuspid regurgitation.
Evidence of PFO with oalu-ir-gqrew shunt by color-flow Doppler.
Compared to previous 2D echo from March 2024, EF was 40 to 45% at that time
with no significant valvular pathology, and no evidence of PFO.
TTE 12/02/24
SUMMARY
1. Severely decreased left ventricular function.
2. Ejection fraction is 15% by visual assesment.
3. Left ventricular wall motion is diffusely hypokinetic.
4. Moderate mitral valve regurgitation.
5. Mild tricuspid regurgitation with pulmonary artery pressure 40 mmHg.
6. ICD wire noted in the right heart.
7. Compared to a YANIQUE from October 2024, findings are similar. Patent foramen ovale was noted in the YANIQUE.
PLAN:
A-fib with RVR
LV thrombus
HFrEF, acute exacerbation
-Admitted to IVU
-Cardiology consult appreciated
-TTE repeated - results above, no change from prior
-s/p IV Dilt in ER, hold further with low EF and drop in BP
-Continue Coreg 25mg (recently increased as outpatient) twice daily with hold parameters for blood pressure
- Digoxin ordered per Cardiology
- Eliquis 5mg PO BID
-Lasix 40 mg IV daily - follow up cardiology recs regarding timing of transition to oral
-Daily weights, strict I/O
-YANIQUE cardioversion as outpatient
Transaminitis - likely 2/2 hepatic congestion
- improving with fluid removal on lasix
DVT prophylaxis�on Eliquis
CODE STATUS�full code
Anticipated Discharge: Within 24 hours
Subjective/Interval History
-
Date of Service: December 05, 2024
feeling well today
lost more weight
Objective Data
-
Labs:
Laboratory Results
12/05/24
04:58
Sodium 139
Potassium 4.3
Chloride 107
Carbon Dioxide 24
BUN 11
Creatinine 0.7
Glucose 107 H
Calcium 9.5
Vital Signs:
Vital Signs
Temp Pulse Resp BP Pulse Ox
98.1 F 99 18 99/68 94
12/05/24 07:55 12/05/24 08:00 12/05/24 07:55 12/05/24 07:43 12/05/24 07:55
I&O
12/04/24 12/05/24 12/06/24
06:59 06:59 06:59
Intake Total 500 / 500 540 / 540
Output Total 2950 / 2950 2325 / 2325
Balance -2450 / -2450 -1785 / -1785
Review of Systems
-
History Source: Patient
All other systems: Reviewed and negative
Physical Exam
-
General: Conversant
HEENT: PERRLA
Respiratory: Clear to Auscultation; Negative Wheezes
Cardiac: S1/S2, Irregular Rhythm and Tachycardic
GI: Soft and Nontender
Musculoskeletal: No Edema
Skin: Warm and Dry; Negative Rash
Neuro: AO x 3
Psych: Calm
Data Reviewed
-
Diagnostic Radiology: Report Reviewed by me
Labs: Labs Reviewed by me
[2024-12-05] MEDS: LASIX 40 MG IV (08:35)
--- NOTE | 2024-12-05 08:46 | W.PN.CARDCBS ---
Addendum entered and electronically signed by Lisa Silva MD 12/05/24 09:55:
I saw and examined the patient.
The Movie Writer's note was reviewed and I agree with the note.
Comment: Patient admitted with acute heart failure with reduced ejection fraction and atrial fibrillation with rapid ventricular response. This has been complicated by left atrial appendage thrombus. She continues on anticoagulation.
Plan is to continue rate control. For now continue carvedilol 25 mg twice daily and digoxin which was started 12/03. Heart rates improved.
-Continue digoxin 250 mcg daily. Dig level 0.6 this a.m.
-Will recheck dig level as well as BMP next week as outpatient to follow-up
-Continue anticoagulation
-Eventual plan for outpatient [facility] of sinus rhythm
- Given young age and association with heart failure and heart failure with reduced ejection fraction consider ablation
Heart failure with reduced ejection fraction and volume overload on admission felt to be in part related to rapid atrial arrhythmia.
- Continue oral diuretic as an outpatient. Currently appears euvolemic.
She is stable for discharge home. All questions answered. Appointment set up.
- New to Farxiga
- Blood pressure currently limiting guideline directed medical therapy otherwise continue to reassess.
Original Note:
Today's Communication / Plan
-
Transition to p.o. Lasix 40 mg daily.
Continue Farxiga 10 mg daily.
Rate control with carvedilol and digoxin
Continue Eliquis 5mg BID
OK for discharge, follow-up arranged.
Impression / Plan
-
PCP: Dr. Trena Morales
Card: Dr. Muse
Impression:
Admitted with acute HF and rapid Afib 12/01/24
Paroxysmal Afib w/ RVR
noticed on device check 10/23/24
Chronic Eliquis OAC since 10/26/24
MARU clot on YANIQUE 11/05/24
Acute HFrEF
NICM EF 15% by YANIQUE 11/05/2024
h/o improved CM EF 30 to 35% by echo 2008 then improved to 40 to 45% with GDMT on echo 04/02/2012
Normal coronary arteries by cardiac catheterizations 08/24/2008 and 06/08/2021
Echo 07/2008: EF 30 to 35%
Echo 04/02/2012: EF 40 to 45%, trace MR
Echo 01/13/2018: EF 40 to 45%, anterior septum and apex are hypokinetic, no significant valve disease
Echo 04/11/2021: EF 30%, global hypokinesis
Echo 07/17/2022: EF 30% with global hypokinesis
Echo 04/16/2024: EF 40 to 45%, normal RV size and function, no significant valve disease
YANIQUE 11/05/2024: EF 15% with global hypokinesis, large volume thrombus formation and heavy spontaneous echo contrast in the MARU, mild MR, evidence of PFO with upfd-in-xmyoe shunt by color Doppler
Plan:
-Presented with increasing SOB/orthopnea. Admitted with acute heart failure and rapid atrial fibrillation.
-She had recent YANIQUE 11/05 which revealed worsening CM with EF down to 15% as well as large volume thrombus of the MARU. Given thrombus, no CV performed.
-Plans to continue rate control with carvedilol 25 mg twice daily and digoxin which was started 12/03. Heart rates improved.
-Continue digoxin 250 mcg daily. Dig level 0.6 this a.m. Will recheck dig level as well as BMP next week as outpatient to follow-up
- Back on anticoagulation with Eliquis 5 mg twice daily. Plan is to repeat YANIQUE with possible CV as OP in 2 weeks.
-Also with evidence of heart failure this admission, likely in the setting of rapid atrial fibrillation. Diuresed with IV Lasix.
-Breathing improved and weight 167 pounds 12/05. Will transition to PO Lasix 40 mg daily.
-Creatinine stable at 0.7. She will follow daily weights at home.
-New to Farxiga 10 mg daily this admission. Hypotension otherwise has limited GDMT for CM which is felt to likely be secondary to Afib, however could consider OP cardiac MRI to evaluate further.
-Outpatient follow-up has been arranged.
-Okay for discharge
HPI: Patient came to the ER yesterday with increasing SOB and was admitted with rapid A-fib and acute HF with cardiology being consulted. Patient has a history of NICM, EF was 30 to 35% in 2008 and cardiac cath at that time showed normal coronary
arteries. EF improved to 40 to 45% with GDMT and was stable until another slight drop in EF down to 30% by echo 07/17/2022 prompting another cardiac cath on 06/08/2021 that also showed normal coronary arteries. Patient's EF improved again and was up
to 40 to 45% by echo 04/16/2024. Cardiology office was alerted to new A-fib by the patient's [employer] DC ICD on 10/23/2024 and patient was started on Eliquis. Patient was seen in the office and was agreeable to YANIQUE/CV which was attempted on
11/05/2024, but patient found to have MARU clot and CV was canceled. Patient has been remained on her usual dose of Eliquis 5 mg BID, but her dose of Coreg has been increased for increasing symptoms of A-fib. Patient had been asymptomatic with A-fib
when it was initially noticed on device check, but symptoms have been increasing, increasingly SOB and MELGAR. Patient was not chronically on loop diuretic and when she called the office with symptoms of orthopnea yesterday she was referred to the ER.
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
Subjective
Date of Service: December 05, 2024
Breathing improved.
Objective
Labs:
12/04/24 04:34
12/05/24 04:58
Labs
Hgb 12.7 g/dL (12.0-16.0) 12/04/24 04:34
Hct 38.3 % (37.0-47.0) 12/04/24 04:34
Plt Count 328 10^3/uL (130-400) 12/04/24 04:34
PT 18.0 Sec (11.4-14.6) H 12/01/24 18:55
INR 1.46 12/01/24 18:55
APTT 29.3 Sec (23.4-35.0) 12/01/24 18:55
Sodium 139 mmol/L (135-145) 12/05/24 04:58
Potassium 4.3 mmol/L (3.5-5.1) 12/05/24 04:58
BUN 11 mg/dl (7-17) 12/05/24 04:58
Creatinine 0.7 mg/dL (0.6-1.0) 12/05/24 04:58
Glucose 107 mg/dl (70-99) H 12/05/24 04:58
Digoxin 0.6 ng/ml (0.8-2.0) L 12/05/24 04:58
Vital Signs and I&O:
Vital Signs
Temp Pulse Resp BP Pulse Ox
98.1 F 99 18 99/68 94
12/05/24 07:55 12/05/24 08:00 12/05/24 07:55 12/05/24 07:43 12/05/24 07:55
Vital Signs
Temp Pulse Resp BP Pulse Ox
98.1 F 99 18 99/68 94
12/05/24 07:55 12/05/24 08:00 12/05/24 07:55 12/05/24 07:43 12/05/24 07:55
Intake & Output
12/03/24 12/04/24 12/05/24 12/06/24
06:59 06:59 06:59 06:59
Intake Total 500 / 500 540 / 540
Output Total 3255 / 3255 2950 / 2950 2325 / 2325
Balance -3255 / -3255 -2450 / -2450 -1785 / -1785
Physical Exam
Physical Exam
GEN: No distress, awake, alert, oriented x3
HEENT: supple, anicteric, mmm
LUNGS: CTA b/l, no wheezes/rales
CV: Irregularly irregular, S1/S2, no murmur
EXT: No clubbing, cyanosis, or edema
NEURO: Gross non-focal
SKIN: Warm, dry, no rash
[2024-12-05] MEDS: FARXIGA 10 MG PO (09:06)
[2024-12-05] MEDS: ELIQUIS 5 MG PO (09:06)
[2024-12-05 09:07] VITALS: BP 99/67
--- NOTE | 2024-12-05 09:10 | W.DS.TRANS ---
DC Summary - Beta Tester
-
Discharge Instructions:
Sleep Apnea Risk Low
Discharge Diagnosis/Procedures atrial fibrillation; heart failure reduced
ejection fraction acute exacerbation
Diet 2 Gram Sodium,Restrict fluids to 48 oz
Activity As tolerated
Driving Restrictions As prior to admission
Bathing Restrictions None
Blood Work BMP to monitor kidney function, dig level this
week
Specialty Instructions Weigh Daily
Instructions:
Stand-Alone Forms:
Changes to Home Medications: Yes
Discharge Medications:
DC Medications w/original date entered in [facility]
apixaban 5 mg tablet (Eliquis) 5 mg PO BID 11/05/24
ergocalciferol (vitamin D2) 1,250 mcg (50,000 unit) capsule 1,250 mcg PO QWEEK 11/05/24
loratadine 10 mg tablet (Claritin) 10 mg PO DAILY PRN allergies 11/05/24
carvedilol 25 mg tablet 25 mg PO BID #60 tabs 12/05/24
dapagliflozin propanediol 10 mg tablet 10 mg PO DAILY #30 tabs 12/05/24
digoxin 250 mcg (0.25 mg) tablet 250 mcg PO NOON #30 tabs 12/05/24
furosemide 40 mg tablet 40 mg PO DAILY #30 tabs 12/05/24
Home Medication Changes
Continue Coreg 25mg twice a day
You are newly started on Digoxin 250mcg daily @ noon to help control heart rates
New start Lasix 40mg daily and Farxiga 10mg daily to keep extra fluid off
Continue Eliquis 5mg twice a day to treat blood clot and prevent stroke
Pending Results: No
[2024-12-05 10:47] VITALS: BP 88/65
[2024-12-05] MEDS: COREG PO (11:04)
[2024-12-05] MEDS: LANOXIN 250 MCG PO (11:20)
--- NOTE | 2024-12-05 13:01 | W.DCSUMMARY ---
Discharge Summary
Discharge Data
Date of Admission: 12/01/24
Date of Discharge: 12/05/24
-
Pending Results: No
Hospital Course
Discharging Physician : Dr. Marlyn Cortes
Disposition : Home
Primary care physician : Dr. Trena Morales
Principal Discharge diagnosis : Atrial Fibrillation with RVR, Heart Failure reduced EF, Acute Exacerbation
Hospital Course :
Ms. Sandi Sheehan is a 64 yo woman with hx non ischemic cardiomyopathy with EF 30-35% 2009 s/p AICD with improvement to 40-45% on GDMT, with finding of new afib 10/21 initiated on Eliquis s/p YANIQUE 11/05/24 with finding of MARU clot presents to the
ER with increased swelling and shortness of breath.
In the emergency department she was initially tachycardic to the 130s. Blood pressure was in the 90s over 60s with a oxygen saturation of 94% on room air. She was afebrile. ECG shows atrial fibrillation at rate of 134. Chest x-ray shows
cardiomegaly with mild interstitial pulmonary edema and trace pleural effusions. BNP was elevated at 3417. Troponin was 0.012. CBC was unremarkable, electrolytes were all within normal limits with the BUN and creatinine were normal.
Patient was admitted for treatment of heart failure reduced EF acute exacerbation in setting of atrial fibrillation with RVR.
She was diuresed with drop in weight from 82.1 kg to 75.8 kg. She is newly started on Lasix 40mg daily and Farxiga 10mg daily.
Her Coreg was recently increased from 12.5mg PO BID to 25mg PO BID, she is also started on Digoxin for rate control given soft blood pressures.
BMP and Digoxin level to be drawn next week.
She is maintained on Eliquis 5mg PO BID with plans to repeat attempt at YANIQUE/cardioversion in 2 weeks. She has close outpatient Cardiology follow up.
Time spent on discharge was 35 minutes.
Important imaging findings :
TTE 12/02/24
SUMMARY
1. Severely decreased left ventricular function.
2. Ejection fraction is 15% by visual assesment.
3. Left ventricular wall motion is diffusely hypokinetic.
4. Moderate mitral valve regurgitation.
5. Mild tricuspid regurgitation with pulmonary artery pressure 40 mmHg.
6. ICD wire noted in the right heart.
7. Compared to a YANIQUE from October 2024, findings are similar. Patent foramen ovale was noted in the YANIQUE.
Procedure findings :
Discharge Plan
-
Patient Disposition: Home (Routine Discharge)
Discharge Diagnosis/Procedures: atrial fibrillation; heart failure reduced ejection fraction acute exacerbation
Diet: 2 Gram Sodium and Restrict fluids to 48 oz
Activity: As tolerated
Driving Restrictions: As prior to admission
Bathing Restrictions: None
Blood Work: BMP to monitor kidney function, dig level this week
Specialty Instructions: Weigh Daily- Call MD for wt gain/loss 3 lbs overnight/5 lbs in 1 week
Referrals:
Trena Morales MD [Family Provider] - in less than 1 week
Tavo Muse DO [Active, Cardiology] - 12/15/24 11:20 am
Referral Note: You have a follow up visit with Dr. Muse at the [place] office. Please call with questions.
Additional Discharge Medication Instructions: Medication regimen:
Continue Coreg 25mg twice a day, hold this medicine if your blood pressure is less than 95 for the top number.
You are newly started on Digoxin 250mcg daily @ noon to help control heart rates
New start Lasix 40mg daily and Farxiga 10mg daily to keep extra fluid off
Continue Eliquis 5mg twice a day to treat blood clot and prevent stroke
Prescriptions:
New
carvedilol 25 mg Tablet
25 mg PO BID Qty: 60 0RF
dapagliflozin propanediol 10 mg Tablet
10 mg PO DAILY Qty: 30 0RF
furosemide 40 mg Tablet
40 mg PO DAILY Qty: 30 0RF
digoxin 250 mcg (0.25 mg) Tablet
250 mcg PO NOON Qty: 30 0RF
Continued
ergocalciferol (vitamin D2) 1,250 mcg (50,000 unit) Capsule
1,250 mcg PO QWEEK
loratadine [Claritin] 10 mg Tablet
10 mg PO DAILY PRN (Reason: allergies)
Eliquis 5 mg Tablet
5 mg PO BID
Discontinued
carvedilol 6.25 MG tablet
12.5 mg PO BID
Discharge Orders:
Discharge Patient (As Directed); Ordered 12/05/24
Ordered By: Marlyn Cortes
Care Plan Goals
Care Plan Goals:
Problem: Readiness for enhanced knowledge related to diagnosis and treatment plan
Goal: Understand your diagnosis and treatment plan needs, including medications if applicable.
Instructions: Know your diagnosis, underlying causes and treatment plan options, including medications if applicable. Consult with your health care team to learn about your diagnosis and treatment plan, including medications if applicable.
Discharge Date and Time
Discharge Date/Time: 12/05/24 12:18
Print Language: CAMBODIAN
== END 2024-12-05 12:18 | disposition home or self-care (01) | DRG 308 ==
LOC: IVU 22:49
PROVIDERS: Emergency Medicine; Internal Medicine Cardiovascular Disease; ADMITTING PHYSICIAN Internal Medicine; ATTENDING PHYSICIAN Student in an Organized Health Care Education/Training Program; EMERGENCY PHYSICIAN Emergency Medicine; FAMILY PHYSICIAN Family Medicine; OTHER PHYSICIAN Nuclear Medicine Nuclear Cardiology
DX: I48.0 Paroxysmal atrial fibrillation (principal); I50.23 Acute on chronic systolic (congestive) heart failure; Q21.12 Patent foramen ovale; I42.8 Other cardiomyopathies; Z95.810 Presence of automatic (implantable) cardiac defibrillator; Z79.01 Long term (current) use of anticoagulants; Z88.0 Allergy status to penicillin; Z82.49 Family history of ischemic heart disease and other diseases of the circulatory system; Z90.49 Acquired absence of other specified parts of digestive tract; Z90.711 Acquired absence of uterus with remaining cervical stump; K76.1 Chronic passive congestion of liver; Z79.899 Other long term (current) drug therapy; I51.3 Intracardiac thrombosis, not elsewhere classified
CPT/HCPCS: 71046; 80048; 80053; 80162; 82247; 82248; 83735; 83880; 84075; 84443; 84450; 84460; 84484; 85025; 85027; 85610; 85730; 93005; 93289; 93306; 96374; 96375; 99285; J1160

== ENCOUNTER → 2025-01-05 08:09 | Day surgery (SDC) | payer OTHER, SELFPAY | LOC: CATH 08:09 | PROVIDERS: ATTENDING PHYSICIAN Internal Medicine Cardiovascular Disease; FAMILY PHYSICIAN Family Medicine; OTHER PHYSICIAN Nuclear Medicine Nuclear Cardiology | DX: I48.0 Paroxysmal atrial fibrillation (principal); I51.3 Intracardiac thrombosis, not elsewhere classified; I08.1 Rheumatic disorders of both mitral and tricuspid valves; I08.8 Other rheumatic multiple valve diseases; I42.8 Other cardiomyopathies; E78.2 Mixed hyperlipidemia; I47.20 Ventricular tachycardia, unspecified; Z79.01 Long term (current) use of anticoagulants; Z79.899 Other long term (current) drug therapy | CPT/HCPCS: 93312; 93320; 93325 ==